=== PATIENT | male | born 1950 | race Caucasian/White ===

== ENCOUNTER 2017-05-24 22:26 | Emergency (ER) | payer OTHER ==
[~2017-05-24] VITALS: Ht 175.3 cm; Wt 75.0 kg
[2017-05-24 23:01] VITALS: BP 146/96; PULSE 100; RESP 20; TEMP 102.8; O2SAT 97
[2017-05-25 03:17] VITALS: BP 144/81; PULSE 86; RESP 18; TEMP 100.2; O2SAT 98
[2017-05-25] MEDS ORDERED: guaiFENesin/CODEINE SYRUP 200 MG/20 MG/10 ML CUP PO ONE (03:30)
[2017-05-25] MEDS ORDERED: ACETAMINOPHEN 325 MG TAB PO ONE (03:30)
--- NOTE | 2017-05-25 03:33 | PD ---
HPI Chief Complaint: Cold / Flu Symptoms Time Seen by Provider: 03:25 Travel History International Travel<30 days: No Contact w/Intl Traveler<30days: No Traveled to known affect area: No History of Present Illness HPI 66yo M with no significant PMH presents to the ED with c/o cough for 5 days. Associated with throat pain, nasal congestion and fever. Said he felt sob around 6pm today and he vomited so he got scared and decided to come in. Denies any chest pain, abdominal pain, focal weakness or numbness. Said he is no longer sob and no longer nauseous. Denies any hemoptysis, history of PE/DVT , recent surgery. Denies any cig smoking. PFSH Past Medical History Diminished Hearing: No Insomnia: Yes Tetanus Vaccination: < 5 Years Influenza Vaccination: No Past Surgical History Surgical History: No Previous Surgery Social History Alcohol Use: No Tobacco Use: No Substance Use: No Allergies-Medications (Allergen,Severity, Reaction): Coded Allergies: No Known Drug Allergies (Verified Allergy, Unknown, 05/24/17) Reported Meds & Prescriptions Reported Meds & Active Scripts Active No Active Prescriptions or Reported Medications Review of Systems Except as stated in HPI: all other systems reviewed are Neg Physical Exam Narrative GENERAL: 66yo M in mild distress. SKIN: Focused skin assessment warm/dry. HEAD: Atraumatic. Normocephalic. EYES: Pupils equal and round. No scleral icterus. No injection or drainage. ENT: Throat: Uvula midline. No tonsillar exudate. NECK: No nuchal rigidity. CARDIOVASCULAR: Regular rate and rhythm. No murmur appreciated. RESPIRATORY: No accessory muscle use. Clear to auscultation. Breath sounds equal bilaterally. GASTROINTESTINAL: Abdomen soft, non-tender, nondistended. MUSCULOSKELETAL: No obvious deformities. No clubbing. No cyanosis. No bilateral lower extremity edema. NEUROLOGICAL: Awake and alert. No obvious cranial nerve deficits. Motor grossly within normal limits. Normal speech. PSYCHIATRIC: Appropriate mood and affect; insight and judgment normal. Data Data Last Documented VS Vital Signs Date Time Temp Pulse Resp B/P (MAP) Pulse Ox O2 Delivery O2 Flow Rate FiO2 05/25/17 03:17 100.2 86 18 144/81 (102) 98 Room Air Orders Orders Influenzae A/B Antigen (05/25/17 03:25) Electrocardiogram (05/25/17 ) Complete Blood Count With Diff (3/13/18 03:25) Basic Metabolic Panel (Bmp) (05/25/17 03:25) Troponin I (05/25/17 03:25) Chest, Single Ap (05/25/17 ) Lactic Acid Sepsis Protocol (05/25/17 03:25) Guaifen-Cod 200-20 Mg/10ml Liq (Robituss (05/25/17 03:30) Acetaminophen (Tylenol) (05/25/17 03:30) Ibuprofen (Motrin) (05/25/17 04:15) Oseltamivir (Tamiflu) (05/25/17 05:15) Labs Laboratory Tests Test 05/25/17 03:30 White Blood Count 5.6 TH/MM3 Red Blood Count 5.35 MIL/MM3 Hemoglobin 17.1 GM/DL Hematocrit 48.4 % Mean Corpuscular Volume 90.4 FL Mean Corpuscular Hemoglobin 31.9 PG Mean Corpuscular Hemoglobin Concent 35.3 % Red Cell Distribution Width 13.0 % Platelet Count 188 TH/MM3 Mean Platelet Volume 7.5 FL Neutrophils (%) (Auto) 57.9 % Lymphocytes (%) (Auto) 25.9 % Monocytes (%) (Auto) 15.6 % Eosinophils (%) (Auto) 0.1 % Basophils (%) (Auto) 0.5 % Neutrophils # (Auto) 3.3 TH/MM3 Lymphocytes # (Auto) 1.5 TH/MM3 Monocytes # (Auto) 0.9 TH/MM3 Eosinophils # (Auto) 0.0 TH/MM3 Basophils # (Auto) 0.0 TH/MM3 CBC Comment DIFF FINAL Differential Comment Blood Urea Nitrogen 13 MG/DL Creatinine 1.18 MG/DL Random Glucose 98 MG/DL Calcium Level 8.5 MG/DL Sodium Level 138 MEQ/L Potassium Level 4.2 MEQ/L Chloride Level 104 MEQ/L Carbon Dioxide Level 29.2 MEQ/L Anion Gap 5 MEQ/L Estimat Glomerular Filtration Rate 62 ML/MIN Lactic Acid Level 1.1 mmol/L Troponin I LESS THAN 0.02 NG/ML MDM Medical Decision Making Medical Screen Exam Complete: Yes Emergency Medical Condition: Yes Interpretation(s) EKG: NSR 83bpm. Normal axis. No ST segment elevation or depression. Differential Diagnosis Pneumonia vs. URI vs. bronchitis Narrative Course 66yo M with flu like symptoms. Pt was initially 102.8F at triage but repeat temp without any medication when he arrived in the medical bed was 100.2F. HR also improved. Pt given ibuprofen and robitussin. Labs reviewed, no leukocytosis. Hemoglobin elevated at 17.1, likely from dehydration. Pt is not nauseous and can hydrate orally. Lactic acid normal at 1.1. Troponin negative. Influenza positive for Flu A antigen. Pt has had symptoms for 4 days already but still offered tamiflu. Said he does not want it. Pt reevaluated at bedside and feels better. Return precautions given. Diagnosis Primary Impression: Influenza A Patient Instructions: General Instructions Departure Forms: Tests/Procedures Additional Instructions: Please follow up with your primary care physician in 2-3 days. Return to the ED if symptoms worsen. Med/Other Pt SpecificInfo: Prescription(s) given Scripts Dextromethorphan (Robitussin Lingering Cold) 15 Mg Cap 30 MG PO Q8H Y for COUGH for 5 Days, #30 CAP 0 Refills Prov: Lesley Carroll DO 05/25/17 Ibuprofen (Ibuprofen) 400 Mg Tab 400 MG PO Q8H Y for FEVER for 5 Days, #15 TAB 0 Refills Prov: Lesley Carroll DO 05/25/17 Disposition: 01 DISCHARGE HOME Condition: Stable Lesley Carroll DO May 25, 2017 03:33
--- NOTE | 2017-05-25 03:43 | RADRPT ---
EXAM DATE/TIME: 05/25/2017 03:35 [facility] COMPARISON: No previous studies available for comparison. INDICATIONS : Short of breath. MEDICAL HISTORY : None. SURGICAL HISTORY : None. ENCOUNTER: Initial ACUITY: 1 day PAIN SCORE: 0/10 LOCATION: Bilateral chest FINDINGS: A single view of the chest demonstrates the lungs to be symmetrically aerated without evidence of mas s, infiltrate or effusion. The cardiomediastinal contours are unremarkable. Osseous structures are intact. CONCLUSION: No acute disease. Sal Wise Jr., MD on May 25, 2017 at 3:41 Board Certified Radiologist. This report was verified electronically.
[2017-05-25 04:07] LABS: AUTOMATED NEUTROPHIL # 3.3 TH/MM3 (1.8-7.7); BASOPHIL % 0.5 % (0.0-2.0); EOSINOPHIL % 0.1 % (0.0-4.0); HEMATOCRIT 48.4 % (39.0-51.0); HEMOGLOBIN 17.1 GM/DL (13.0-17.0); LYMPH % 25.9 % (9.0-44.0); LYMPHOCYTE # 1.5 TH/MM3 (1.0-4.8); MEAN CELL VOLUME 90.4 FL (80.0-100.0); MEAN CORPUSCULAR HEMOGLOBIN 31.9 PG (27.0-34.0); MEAN CORPUSCULAR HGB CONC 35.3 % (32.0-36.0); MEAN PLATELET VOLUME 7.5 FL (7.0-11.0); MONO % 15.6 % (0.0-8.0); MONOCYTE # 0.9 TH/MM3 (0-0.9); NEUT % 57.9 % (16.0-70.0); PLATELET COUNT 188 TH/MM3 (150-450); RED BLOOD COUNT 5.35 MIL/MM3 (4.50-5.90); WHITE BLOOD COUNT 5.6 TH/MM3 (4.0-11.0)
[2017-05-25] MEDS ORDERED: IBUPROFEN 600 MG TAB PO ONE (04:15)
[2017-05-25 04:18] LABS: BICARBONATE 29.2 MEQ/L (21.0-32.0); BLOOD UREA NITROGEN 13 MG/DL (7-18); CALCIUM 8.5 MG/DL (8.5-10.1); CHLORIDE 104 MEQ/L (98-107); CREATININE 1.18 MG/DL (0.60-1.30); GLOMERULAR FILTRATION RATE 62 ML/MIN (>89); GLUCOSE,RANDOM 98 MG/DL (74-106); SODIUM (NA) 138 MEQ/L (136-145)
[2017-05-25 04:21] LABS: TROPONIN I LESS THAN 0.02 NG/ML (0.02-0.05)
[2017-05-25] MEDS ORDERED: ROBICAP2 PO (05:15)
[2017-05-25] MEDS ORDERED: OSELTAMIVIR PHOSPHATE 75 MG CAP PO ONE (05:15)
[2017-05-25] MEDS ORDERED: IBUP1TAB5 PO (05:15)
--- NOTE | 2017-05-25 19:25 | EKG ---
Date Performed: 05/25/2017 Time Performed: 03:33:50 PTAGE: 66 years EKG: Sinus rhythm NORMAL ECG NO PREVIOUS TRACING DOCTOR: Ruben Pang Interpretating Date/Time 05/25/2017 19:22:58
== END 2017-05-25 06:00 | disposition home or self-care (01) ==
LOC: NEPE 22:26
DX: J09.X2 Influenza due to identified novel influenza A virus with other respiratory manifestations (principal); R06.02 Shortness of breath; G47.00 Insomnia, unspecified
CPT/HCPCS: 71045; 80048; 83605; 84484; 85025; 87804; 93005; 99285